=== PATIENT | male | born 1970 | race Caucasian/White ===

== ENCOUNTER 2018-09-09 08:13 | Emergency (ER) | payer OTHER ==
[~2018-09-09] VITALS: Ht 182.9 cm; Wt 83.9 kg
[~2018-09-09 08:13] MED LIST: IBUPROFEN 800800 MG PO; MIRALAX17 G1 PO; ZOFRAN4 MG PO
[2018-09-09] MEDS ORDERED: HYDROCODONE-AP1 EAC6 PO (09:13)
[2018-09-09] MEDS ORDERED: BACTRIM DS TAB1 EACH PO (09:13)
[2018-09-09 09:26] VITALS: BP 122/81
== END 2018-09-09 09:27 | disposition home or self-care (01) ==
LOC: M.ERS 08:13
DX: L02.413 Cutaneous abscess of right upper limb (principal); L02.213 Cutaneous abscess of chest wall

== ENCOUNTER 2018-09-11 16:32 | Inpatient (IN) | payer OTHER ==
[~2018-09-11] VITALS: Ht 152.4 cm; Wt 80.3 kg
[~2018-09-11 16:32] MED LIST changes: +BACTRIM DS TAB1 EACH PO; +HYDROCODONE-AP1 EAC6 PO
[2018-09-11 16:45] VITALS: BP 131/75
[2018-09-11 17:23] LABS: ABSOLUTE BASOPHILS 0.1 thou/uL (0.0-0.2); ABSOLUTE EOSINOPHILS 0.1 thou/uL (0.0-0.7); ABSOLUTE MONOCYTES 0.8 thou/uL (0.0-1.2); BASOPHILS 0.8 %; EOSINOPHILS 1.1 %; HEMATOCRIT 42.6 % (42.0-52.0); HEMOGLOBIN 14.5 gm/dL (14.0-18.0); LYMPHOCYTES 16.5 %; MCH 29.5 pg (26.0-34.0); MCV 86.7 fL (80.0-100.0); MONOCYTES 6.9 %; MPV 7.3 fl. (7.2-11.1); NUCLEATED RBCS 0 /100WBC; PLATELET COUNT* 360 thou/uL (150-400); POLYS 74.7 %; RBC 4.91 mil/uL (4.50-6.00); RDW-CV 13.1 % (10.5-14.5)
[2018-09-11 17:26] LABS: CALCIUM 8.9 mg/dL (8.5-10.1); CREATININE 1.2 mg/dL (0.6-1.3)
[2018-09-11 17:31] LABS: ALBUMIN 3.1 g/dL (3.4-5.0); TOTAL BILIRUBIN 0.2 mg/dL (<0.1-1.0); TOTAL PROTEIN 7.1 g/dL (6.4-8.2)
[2018-09-11 17:45] VITALS: BP 130/70
[2018-09-11 18:30] VITALS: BP 117/77
--- NOTE | 2018-09-11 19:34 | NUR ---
1805 ASSUMED CARE OF PT FROM ER TRANSFER. ADMITTED TO ROOM 308 VIA WHEELCHAIR, CELLULITIS TO RIGHT WRIST NOTED. ON IV ABT ORDERED. DR BERGER TO FOLLOW
[2018-09-11 20:19] LABS: URINE BILIRUBIN NEGATIVE (Negative); URINE BLOOD NEGATIVE (Negative); URINE CLARITY CLEAR; URINE COLOR YELLOW; URINE GLUCOSE-RANDOM NEGATIVE (Negative); URINE KETONES NEGATIVE (Negative); URINE LEUKOCYTES NEGATIVE (Negative); URINE NITRITE NEGATIVE (Negative); URINE PROTEIN NEGATIVE (Negative); URINE SPECIFIC GRAVITY >= 1.030 (1.005-1.030)
[2018-09-11 20:33] LABS: AMP/METHAMP POSITIVE (Negative); BARBITURATES Negative (Negative); BENZODIAZEPINES Negative (Negative); COCAINE Negative (Negative); METHADONE Negative (Negative); OPIATES Negative (Negative); PCP Negative (Negative); THC POSITIVE (Negative)
[2018-09-11 23:14] VITALS: BP 109/64
[2018-09-12 03:25] LABS: ABSOLUTE BASOPHILS 0.1 thou/uL (0.0-0.2); ABSOLUTE EOSINOPHILS 0.1 thou/uL (0.0-0.7); ABSOLUTE MONOCYTES 0.7 thou/uL (0.0-1.2); ABSOLUTE NEUTROPHILS 4.3 thou/uL (1.6-8.1); BASOPHILS 1.1 %; EOSINOPHILS 1.9 %; HEMATOCRIT 38.2 % (42.0-52.0); HEMOGLOBIN 12.9 gm/dL (14.0-18.0); MCH 29.4 pg (26.0-34.0); MCHC 33.6 g/dL (28.0-37.0); MCV 87.4 fL (80.0-100.0); MONOCYTES 9.6 %; MPV 7.3 fl. (7.2-11.1); NUCLEATED RBCS 0 /100WBC; PLATELET COUNT* 301 thou/uL (150-400); POLYS 59.4 %; RBC 4.38 mil/uL (4.50-6.00); RDW-CV 12.8 % (10.5-14.5); WBC 7.2 thou/uL (4.0-11.0)
[2018-09-12 03:44] LABS: CALCIUM 8.4 mg/dL (8.5-10.1); POTASSIUM 4.2 mmol/L (3.5-5.1)
--- NOTE | 2018-09-12 05:27 | NUR ---
ASSUMED CARE AT 1930. PATIENT SLEPT ALL NIGHT WANTING NOT TO BE DISTURBED. IVF AND IVPB INFUSING WELL. DRESSING TO RT WRIST D/I. VOIDS PER TOILET. NO C/O PAIN. HOURLY ROUNDS CONTINUE. CALL LITE IN REACH.
[2018-09-12 08:00] VITALS: BP 112/72
[2018-09-12 12:19] VITALS: BP 112/72
[2018-09-12 15:30] VITALS: BP 131/83
--- NOTE | 2018-09-12 15:30 | NUR ---
PT RETURNED FROM PACU FROM I&D RT WRIST. VITALS STABLE. WILL CONTINUE TO MONITOR.
--- NOTE | 2018-09-12 17:06 | NUR ---
SW was going to attempt to meet with pt but at the time, pt was busy discussing with nurse and stating that he was wanting to leave AMA.
--- NOTE | 2018-09-12 18:35 | NUR ---
DISCHARGE - PT WAS VERY ADAMENT ON BEING DISCHARGED THIS EVENING. CALLED . STATED HE CAN LEAVE BUT IT WILL BE AMA. PT UNDERSTOOD AND SIGNED AMA FORM. IV REMOVED. MEDS FROM PHARMACY GIVEN TO PT. CAB VOUCHER GIVEN PER LACING CUTTER.
--- NOTE | 2018-09-13 07:46 | CON ---
[facility] [address] [place] [address] CONSULTATION Name: ALANA CARNES Room: [address] IN M.R.#: [id number] Admission: 09/11/18 Attend Phys: Brayan Choudhury MD Discharge: 09/12/18 Date of : 72 Report #: [id number] THIS REPORT FOR: //name// CC: Brayan Choudhury [facility] physician/PCP DATE OF SERVICE: 09/12/2018 INFECTIOUS DISEASE CONSULTATION ATTENDING PHYSICIAN: Brayan Choudhury M.D. REASON FOR EVALUATION: Skin and soft tissue infection with abscess, right wrist. HISTORY OF PRESENT ILLNESS: Chart reviewed, patient examined. This is a 48-year-old apparently without significant medical history. Otherwise, previous history of skin and soft tissue infections, had developed inflammatory subcutaneous mass involving his right wrist and some 4 days prior to admission, there is some question about being bit by a spider. Did have increasing signs and symptoms suggestive of infection including pain, swelling. He did have it incised in the Emergency Room and there was a small amount of bloody purulent material. He is not aware of any fevers or chills. His appetite has been generally pretty good. No issues with difficulty breathing, no chest pain, no sore throat, no sinus congestion. Denies any dental issues. No abdominal related complaints. No diarrhea. No nausea. He was admitted to undergo evaluation including surgery, which is in progress. He was empirically started on therapy including ceftriaxone, vancomycin. He is not encephalopathic. ALLERGIES: None known. MEDICATIONS: Include enoxaparin, ceftriaxone, pantoprazole, vancomycin, fentanyl, hydralazine, ondansetron, docusate sodium, acetaminophen, oxycodone. PAST MEDICAL HISTORY: Otherwise, unremarkable. SOCIAL HISTORY: He does smoke cigarettes and also smokes marijuana. Occasional ethanol. FAMILY HISTORY: Noncontributory. REVIEW OF SYSTEMS: Unremarkable with the exception of the above, 10-point review of systems. PHYSICAL EXAMINATION: GENERAL: He is alert, cooperative, in mild distress, [place] [address] CONSULTATION Name: ALANA CARNES Room: [address]#: [id number] Admission: 09/11/18 Attend Phys: Brayan Choudhury MD Discharge: 09/12/18 Date of : 72 Report #: [id number] appearing. VITAL SIGNS: Temperature 98, pulse 82, respirations 16, blood pressure 120/72. SKIN: Warm. HEENT: Unremarkable. No notable eye abnormalities. His oropharynx is without lesions. NECK: Supple. LUNGS: Clear breath sounds bilaterally. HEART: Regular. I do not appreciate a murmur. ABDOMEN: Soft, nontender, nondistended. EXTREMITIES: Right distal lower extremity has a compressive dressing. This was just changed. We will go ahead and evaluate it tomorrow. GENITOURINARY: Deferred. RECTAL: Deferred. LABORATORY DATA: Blood cultures sterile thus far. Electrolytes: Sodium 138, potassium 4.2, chloride 105, bicarb 25, BUN and creatinine 12 and 1.0, GFR 80. CBC: White count 7.2, H and H 12.9 and 38.2, platelets of 301. Positive drug screen for methamphetamine and marijuana. Urinalysis unremarkable. Lactic acid 1.0. Right wrist x-ray, no acute osseous abnormality. ASSESSMENT: Skin and soft tissue infection with abscess. The patient seemingly has had issues prior to this, likely is a Staph or Strep etiology. We will continue combination therapy at this point. He notes clinically he feels much better. We will await surgery and their decision whether they need to open it up to a greater extent. We will await culture results and they are in the pending stage. <ELECTRONICALLY SIGNED> By: Gamaliel Funez MD 09/13/18 0746 [id number] Funez MD /nt
--- NOTE | 2018-09-15 09:32 | OP ---
[address] [address] OPERATIVE REPORT Name: THOMAS CARNES Room: [address] IN M.R.#: [id number] Admission: 09/11/18 Attend Phys: Brayan Choudhury MD Discharge: 09/12/18 Date of : 72 Report #: [id number] THIS REPORT FOR: //name// CC: Brayan Choudhury [facility] physician/PCP DATE OF SERVICE: 09/12/2018 PREOPERATIVE DIAGNOSIS: Abscess, right wrist. POSTOPERATIVE DIAGNOSIS: Abscess, right wrist. OPERATION PERFORMED: Incision and drainage to bone, right wrist, 3 x 2 cm, 6 square cm. SURGEON: Thomas Jin DO. SUBCONTRACT ADMINISTRATOR: Luca Sheikh DO ANESTHESIA: General. GROSS PATHOLOGY: There was evidence of necrosis on the volar radial aspect of the right wrist, which was noted to go down to the muscle layer. Purulent material was noted in this region, C and S was taken. The patient denies drug abuse, but he is positive for drugs in his testing. He also denies doing any drugs in this region; however, slightly radial to the abscess, there is a track type line with the most proximal edge on the ulna and the distal portion in a radial direction. The tissue was necrotic around the ulnar artery and nerve and somewhat in the median nerve region. DESCRIPTION OF PROCEDURE: The patient was brought to the operating room where general anesthetic was administered. He was on preoperative antibiotics. A Betadine scrub and prep was done to the right arm. The patient draped in a sterile manner. The purulent material was identified and C and S was taken. The abscess was further opened in a radial direction for approximately 2 cm. It was carried down through the skin and subcuticular material by sharp dissection, the purulent material was expressed. When no further material can be expressed, dissection continues digitally to the muscle region in this area as well to the ulna. There was no evidence of proximal abscess and the area was further inspected and there was no persistent abscess. The side was thoroughly irrigated. The debridement was done excisional, the skin, subcutaneous and muscle tissue as well as mechanical by irrigating the tissue. The tourniquet was deflated to 0 during the irrigation phase. Hemostasis maintained. The site was then loosely closed with interrupted 3-0 nylon. Blood loss approximately 10 mL. The needle and sponge count reported as correct. The patient was transferred to the recovery room in good condition. [place] [address] OPERATIVE REPORT Name: THOMAS CARNES Room: [address] IN [facility].#: [id number] Admission: 09/11/18 Attend Phys: Brayan Choudhury MD Discharge: 09/12/18 Date of : 72 Report #: [id number] tissue was indurated consistent with chronic abuse. The patient was counseled prior to the surgery of the possible complications of surgery, possible need for further surgery and even loss of the arm could occur. <ELECTRONICALLY SIGNED> By: Thomas Jin DO 09/15/18 0932 [id number] [id number] Jin DO /nt
== END 2018-09-12 18:35 | disposition left against medical advice (07) | DRG 580 ==
LOC: M.ERS 16:32 → M.TBA-ER 17:21 → M.3W 17:21
PROVIDERS: Physician Assistant; ADMIT Internal Medicine
PROC: 0KB90ZZ Excision of Right Lower Arm and Wrist Muscle, Open Approach (ICD-10-PCS; principal; 2018-09-12)
DX: L03.113 Cellulitis of right upper limb (principal); R65.10 Systemic inflammatory response syndrome (SIRS) of non-infectious origin without acute organ dysfunction; L02.413 Cutaneous abscess of right upper limb; F17.210 Nicotine dependence, cigarettes, uncomplicated; F12.10 Cannabis abuse, uncomplicated; Z28.21 Immunization not carried out because of patient refusal